=== PATIENT | female | born 1955 | race Caucasian/White ===

== ENCOUNTER 2017-06-09 06:48 | Observation (INO) | payer BC ==
[2017-06-09] MEDS ORDERED: Sodium Chloride 0.9% 2.5 ML Syringe FLUSH PRN (06:54)
[2017-06-09] MEDS ORDERED: Sodium Chloride 0.9% 10 ML Syringe FLUSH PRN (06:54)
[2017-06-09 07:18] LABS: CHLORIDE,CL 107 mmol/L (98-110); SODIUM,NA 143 mmol/L (136-146)
--- NOTE | 2017-06-09 07:20 | EDM.PDOC ---
ED HPI GENERAL MEDICAL PROBLEM - General Chief Complaint: Neuro Symptoms/Deficits Stated Complaint: AMBULANCE Time Seen by Provider: 06/09/17 07:20 Source of Information: Reports: Patient - History of Present Illness INITIAL COMMENTS - FREE TEXT/NARRATIVE: HISTORY AND PHYSICAL: History of present illness: [Patient with history of right frontal stroke awoke at 4 AM with symptoms of left lower extremity weakness unable to move her entire left lower extremity she presents with his history however on arrival she appears to have full strength of the left lower extremity, she does complain of some facial tingling and perceived weakness on the left however I do not appreciate any facial weakness possibly slightly uneven smile no drooling no slurred speech. No other symptoms such as fever nausea vomiting diarrhea constipation chest pain shortness breath headache dizziness or palpitation no bowel or urine symptoms ] Patient declines/refuses tPA however she is not a candidate as she has uncertain of exact onset and has had rapid resolution of symptoms, patient refuses admission for observation Review of systems: As per history of present illness and below otherwise all systems reviewed and negative. Past medical history: As per history of present illness and as reviewed below otherwise noncontributory. Surgical history: As per history of present illness and as reviewed below otherwise noncontributory. Social history: No reported history of drug or alcohol abuse. Family history: As per history of present illness and as reviewed below otherwise noncontributory. Physical exam: HEENT: Atraumatic, normocephalic, pupils reactive, negative for conjunctival pallor or scleral icterus, mucous membranes moist, throat clear, neck supple, nontender, trachea midline. Lungs: Clear to auscultation, breath sounds equal bilaterally, chest nontender. Heart: S1S2, regular, negative for clicks, rubs, or JVD. Abdomen: Soft, nondistended, nontender. Negative for masses or hepatosplenomegaly. Negative for costovertebral tenderness. Pelvis: Stable nontender. Genitourinary: Deferred. Rectal: Deferred. Extremities: Atraumatic, negative for cords or calf pain. Neurovascular unremarkable. Neuro: Awake, alert, oriented. Cranial nerves slight cranial nerve VII weakness on the left unchanged from previous per otherwise unremarkable Cerebellum unremarkable. Motor and sensory unremarkable throughout. Exam nonfocal. Diagnostics: [Lab as below Head CT no contrast Chest 1 view EKG ] Therapeutics: [Aspirin 324 mg chewable Synthroid 75 g by mouth daily ] Patient later agrees to admission for observation Impression: [TIA] versus stroke Slight paresthesia left cranial nerve VII distribution Hypothyroid Chronic history of baseline Definitive disposition and diagnosis as appropriate pending reevaluation and review of above. - Related Data Allergies Allergy/AdvReac Type Severity Reaction Status Date / Time morphine Allergy Hallucinati Verified 11/12/15 12:59 ons piperacillin sodium Allergy Rash Verified 11/12/15 12:59 [From Zosyn] tazobactam sodium Allergy Rash Verified 11/12/15 12:59 [From Zosyn] Home Meds: Home Meds Cholecalciferol (Vitamin D3) [Vitamin D3] 2,000 unit PO DAILY 10/23/13 [History] Clopidogrel [Plavix] 75 mg PO DAILY 10/23/13 [History] Cyanocobalamin (Vitamin B-12) [Vitamin B-12] 1,000 mcg PO BID 10/23/13 [History] Docosahexanoic Acid [DHA] 450 mg PO BID 10/23/13 [History] Escitalopram [Lexapro] 20 mg PO DAILY 10/23/13 [History] Gabapentin [Neurontin] 300 mg PO QID 10/23/13 [History] atorvaSTATin [Lipitor] 40 mg PO BEDTIME 10/23/13 [History] Acetaminophen [Tylenol Arthritis Pain] 1 tab PO ASDIRECTED PRN 11/12/15 [History ] Cyanocobalamin/FA/Pyridoxine [Folbic] 1 tab PO DAILY 11/12/15 [History] Glucosamine/D3/Boswellia Ayneli [Osteo Bi-Flex Caplet] 2 tab PO BID 11/12/15 [ History] Krill Oil/Farwell-3/Dha/Epa [Farwell-3 Krill Oil Softgel] 1,200 mg PO DAILY [History] Lutein 1 tab PO DAILY 11/12/15 [History] Magnesium Oxide [Magnesium] 1 cap PO BID 11/12/15 [History] Multivits-Min/Iron/FA/Lutein [Centrum Silver Women Tablet] 1 tab PO DAILY [History] Ubidecarenone [Co Q-10] 1 cap PO DAILY 11/12/15 [History] Zinc 1 tab PO DAILY 11/12/15 [History] Past Medical History Other HEENT History: uses reading glasses Cardiovascular History: Reports: High Cholesterol Respiratory History: Reports: Sleep Apnea Other Respiratory History: does not use CPAP currently being treated for Lung Cancer Gastrointestinal History: Reports: None CFO History: Reports: None Musculoskeletal History: Reports: Fracture Other Musculoskeletal History: right wrist Neurological History: Reports: CVA Other Neuro History: stroke in 2011, has some tingling of left hand and slurred speech if tired Psychiatric History: Reports: Depression Endocrine/Metabolic History: Reports: Obesity/BMI 30+ Hematologic History: Reports: None Immunologic History: Reports: None Oncologic (Cancer) History: Reports: Colon, Lung, Renal Dermatologic History: Reports: None - Past Surgical History Head Surgeries/Procedures: Reports: None HEENT Surgical History: Reports: None Cardiovascular Surgical History: Reports: None Respiratory Surgical History: Reports: None GI Surgical History: Reports: Colon Other GI Surgeries/Procedures: Colon Resection for Cancer Female Surgical History: Reports: Hysterectomy Other Female Surgeries/Procedures: Cystocele repair Endocrine Surgical History: Reports: None Neurological Surgical History: Reports: None Musculoskeletal Surgical History: Reports: None Other Oncologic Surgeries/Procedures: Colon resection, partial Nephrectomy Dermatological Surgical History: Reports: None Social & Family History - Tobacco Use Smoking Status *Q: Current Every Day Smoker Years of Tobacco use: 30 Packs/Tins Daily: 1 - Alcohol Use Days Per Week of Alcohol Use: 1 Number of Drinks Per Day: 2 Total Drinks Per Week: 2 - Recreational Drug Use Recreational Drug Use: No Drug Use in Last 12 Months: No ED ROS GENERAL - Review of Systems Review Of Systems: ROS reveals no pertinent complaints other than HPI. ED EXAM, GENERAL - Physical Exam Exam: See Below Course - Vital Signs Last Recorded V/S: Last Vital Signs Temp 97.5 F 06/09/17 06:48 Pulse 65 06/09/17 08:27 Resp 16 06/09/17 08:27 BP 108/63 06/09/17 08:27 Pulse Ox 100 06/09/17 08:27 - Orders/Labs/Meds Orders: Active Orders 24 hr Category Date Time Status Cardiac Monitoring [RC] . DIRECTED Care 06/09/17 06:53 Active EKG Documentation Completion [RC] STAT Care 06/09/17 06:53 Active Oxygen Therapy, ED [RC] ASDIRECTED Care 06/09/17 06:53 Active Pulse Oximetry [RC] ASDIRECTED Care 06/09/17 06:53 Active Chest 1V Frontal [CR] Stat Exams 06/09/17 06:54 Taken Head wo Cont [CT] Stat Exams 06/09/17 06:54 Taken Sodium Chloride 0.9% [Normal Saline] 1,000 ml Med 06/09/17 07:00 Active IV STAT Sodium Chloride 0.9% [Saline Flush] Med 06/09/17 06:54 Active 10 ml FLUSH ASDIRECTED PRN Sodium Chloride 0.9% [Saline Flush] Med 06/09/17 06:54 Active 2.5 ml FLUSH ASDIRECTED PRN Saline Lock Insert [OM.PC] Stat Oth 06/09/17 06:53 Ordered Medication Orders Sodium Chloride (Normal Saline) 1,000 mls @ 125 mls/hr IV STAT ROSEMARIE Last Admin: 06/09/17 07:27 Dose: 125 mls/hr Sodium Chloride (Saline Flush) 10 ml FLUSH ASDIRECTED PRN PRN Reason: Keep Vein Open Last Admin: 06/09/17 08:40 Dose: 10 ml Sodium Chloride (Saline Flush) 2.5 ml FLUSH ASDIRECTED PRN PRN Reason: Keep Vein Open Last Admin: 06/09/17 08:40 Dose: 2.5 ml Labs: Laboratory Tests 06/09/17 06/09/17 06/09/17 Range/Units 06:55 06:55 06:55 WBC 8.06 (4.0-11.0) K/uL RBC 4.66 (4.30-5.90) M/uL Hgb 14.9 (12.0-16.0) g/dL Hct 44.8 (36.0-46.0) % MCV 96.1 (80.0-98.0) fL MCH 32.0 (27.0-32.0) pg MCHC 33.3 (31.0-37.0) g/dL RDW Std Deviation 52.7 (28.0-62.0) fl RDW Coeff of Simran 15 (11.0-15.0) % Plt Count 105 L (150-400) K/uL MPV 11.20 (7.40-12.00) fL Add Manual Diff YES Neutrophils % (Manual) 56 (48.0-80.0) % Band Neutrophils % 1 % Lymphocytes % (Manual) 36 (16.0-40.0) % Monocytes % (Manual) 3 (0.0-15.0) % Eosinophils % (Manual) 3 (0.0-7.0) % Basophils % (Manual) 1 (0.0-1.5) % Nucleated RBC % 0.0 /100WBC Absolute Seg Neuts 4.5 (1.4-5.7) Band Neutrophils # 0.1 Lymphocytes # (Manual) 2.9 H (0.6-2.4) Monocytes # (Manual) 0.2 (0.0-0.8) Eosinophils # (Manual) 0.2 (0.0-0.7) Basophils # (Manual) 0.1 (0.0-0.1) Nucleated RBCs # 0 K/uL INR 0.98 Sodium 143 (136-146) mmol/L Potassium 4.5 (3.5-5.1) mmol/L Chloride 107 (98-110) mmol/L Carbon Dioxide 26 (21-31) mmol/L BUN 19 (6.0-23.0) mg/dL Creatinine 1.5 (0.6-1.5) mg/dL Est Cr Clr Drug Dosing 31.15 mL/min Estimated GFR (MDRD) 35.3 ml/min Glucose 96 (60-110) mg/dL Calcium 9.5 (8.8-10.8) mg/dL Total Bilirubin 0.6 (0.1-1.5) mg/dL AST 22 (5-40) IU/L ALT 17 (8-54) IU/L Alkaline Phosphatase 144 (40-150) Troponin I < 0.10 (0.0-0.29) NG/ML Total Protein 6.9 (6.0-8.0) g/dL Albumin 4.0 (3.4-4.8) g/dL Globulin 2.9 (2.0-3.5) g/dL Albumin/Globulin Ratio 1.4 (1.3-2.8) TSH 3rd Generation 7.68 H (0.47-5.0) uIU/mL Urine Color Urine Appearance Urine pH (5.0-8.0) Ur Specific [place] (1.001-1.035) Urine Protein (NEGATIVE) mg/dL Urine Glucose (UA) (NEGATIVE) mg/dL Urine Ketones (NEGATIVE) mg/dL Urine Occult Blood (NEGATIVE) Urine Nitrite (NEGATIVE) Urine Bilirubin (NEGATIVE) Urine Urobilinogen (<2.0) EU/dL Ur Leukocyte Esterase (NEGATIVE) Urine RBC (0-2/HPF) Urine WBC (0-5/HPF) Ur Epithelial Cells (NONE-FEW) Amorphous Sediment (NEGATIVE) Urine Bacteria (NEGATIVE) Urine Opiates Screen (NEGATIVE) Ur Oxycodone Screen (NEGATIVE) Urine Methadone Screen (NEGATIVE) Ur Barbiturates Screen (NEGATIVE) Ur Phencyclidine Scrn (NEGATIVE) Ur Amphetamine Screen (NEGATIVE) U Methamphetamines Scrn (NEGATIVE) U Benzodiazepines Scrn (NEGATIVE) U Cocaine Metab Screen (NEGATIVE) U Marijuana (THC) Screen (NEGATIVE) Ethyl Alcohol < 10.0 mg/dL 06/09/17 06/09/17 Range/Units 08:13 08:13 WBC (4.0-11.0) K/uL RBC (4.30-5.90) M/uL Hgb (12.0-16.0) g/dL Hct (36.0-46.0) % MCV (80.0-98.0) fL MCH (27.0-32.0) pg MCHC (31.0-37.0) g/dL RDW Std Deviation (28.0-62.0) fl RDW Coeff of Simran (11.0-15.0) % Plt Count (150-400) K/uL MPV (7.40-12.00) fL Add Manual Diff Neutrophils % (Manual) (48.0-80.0) % Band Neutrophils % % Lymphocytes % (Manual) (16.0-40.0) % Monocytes % (Manual) (0.0-15.0) % Eosinophils % (Manual) (0.0-7.0) % Basophils % (Manual) (0.0-1.5) % Nucleated RBC % /100WBC Absolute Seg Neuts (1.4-5.7) Band Neutrophils # Lymphocytes # (Manual) (0.6-2.4) Monocytes # (Manual) (0.0-0.8) Eosinophils # (Manual) (0.0-0.7) Basophils # (Manual) (0.0-0.1) Nucleated RBCs # K/uL INR Sodium (136-146) mmol/L Potassium (3.5-5.1) mmol/L Chloride (98-110) mmol/L Carbon Dioxide (21-31) mmol/L BUN (6.0-23.0) mg/dL Creatinine (0.6-1.5) mg/dL Est Cr Clr Drug Dosing mL/min Estimated GFR (MDRD) ml/min Glucose (60-110) mg/dL Calcium (8.8-10.8) mg/dL Total Bilirubin (0.1-1.5) mg/dL AST (5-40) IU/L ALT (8-54) IU/L Alkaline Phosphatase (40-150) Troponin I (0.0-0.29) NG/ML Total Protein (6.0-8.0) g/dL Albumin (3.4-4.8) g/dL Globulin (2.0-3.5) g/dL Albumin/Globulin Ratio (1.3-2.8) TSH 3rd Generation (0.47-5.0) uIU/mL Urine Color YELLOW Urine Appearance CLEAR Urine pH 6.5 (5.0-8.0) Ur Specific [place] 1.015 (1.001-1.035) Urine Protein TRACE (NEGATIVE) mg/dL Urine Glucose (UA) NEGATIVE (NEGATIVE) mg/dL Urine Ketones NEGATIVE (NEGATIVE) mg/dL Urine Occult Blood NEGATIVE (NEGATIVE) Urine Nitrite NEGATIVE (NEGATIVE) Urine Bilirubin NEGATIVE (NEGATIVE) Urine Urobilinogen 0.2 (<2.0) EU/dL Ur Leukocyte Esterase TRACE (NEGATIVE) Urine RBC 0-1 (0-2/HPF) Urine WBC 0-1 (0-5/HPF) Ur Epithelial Cells RARE (NONE-FEW) Amorphous Sediment RARE (NEGATIVE) Urine Bacteria RARE (NEGATIVE) Urine Opiates Screen NEGATIVE (NEGATIVE) Ur Oxycodone Screen NEGATIVE (NEGATIVE) Urine Methadone Screen NEGATIVE (NEGATIVE) Ur Barbiturates Screen NEGATIVE (NEGATIVE) Ur Phencyclidine Scrn NEGATIVE (NEGATIVE) Ur Amphetamine Screen NEGATIVE (NEGATIVE) U Methamphetamines Scrn NEGATIVE (NEGATIVE) U Benzodiazepines Scrn NEGATIVE (NEGATIVE) U Cocaine Metab Screen NEGATIVE (NEGATIVE) U Marijuana (THC) Screen NEGATIVE (NEGATIVE) Ethyl Alcohol mg/dL Meds: Medications Generic Name Dose Route Start Last Admin Trade Name Freq PRN Reason Stop Dose Admin Sodium Chloride 1,000 mls @ 125 mls/hr 06/09/17 07:00 06/09/17 07:27 Normal Saline IV 125 mls/hr STAT ROSEMARIE Administration Sodium Chloride 10 ml 06/09/17 06:54 06/09/17 08:40 Saline Flush FLUSH 10 ml ASDIRECTED PRN Administration Keep Vein Open Sodium Chloride 2.5 ml 06/09/17 06:54 06/09/17 08:40 Saline Flush FLUSH 2.5 ml ASDIRECTED PRN Administration Keep Vein Open Discontinued Medications Generic Name Dose Route Start Last Admin Trade Name Freq PRN Reason Stop Dose Admin Aspirin 81 mg 06/09/17 08:54 Aspirin PO 06/09/17 08:55 ONETIME ONE Levothyroxine Sodium 75 mcg 06/09/17 08:54 Levothyroxine PO 06/09/17 08:55 ONETIME ONE Departure - Departure Time of Disposition: 08:59 Disposition: Refer to Observation Condition: Fair Clinical Impression: TIA (transient ischemic attack) - Discharge Information Referrals: PCP,None [Primary Care Provider] - Forms: ED Department Discharge
[2017-06-09] MEDS: Sodium Chloride 0.9% 1,000 ML IV SCH ×2 (07:27→17:54)
[2017-06-09] MEDS ORDERED: Aspirin 81 MG Tab.Chew PO ONE (08:54)
[2017-06-09] MEDS ORDERED: Levothyroxine 75 MCG Tab PO ONE (08:54)
--- NOTE | 2017-06-09 09:03 | PCM.HP ---
H&P History of Present Illness - General Date of Service: 06/09/17 Admit Problem/Dx: TIA Source of Information: Patient, Family History Limitations: Reports: No Limitations - History of Present Illness Initial Comments - Free Text/Narative: 62-year-old female presented to emergency department with chief complaint of left lower extremity weakness with past medical history of CVA 2016, multiple TIAs 2008, hypertension, hyperlipidemia and non-small cell lung cancer. Patient initially presented to the emergency department with chief complaint of left lower extremity weakness starting at 4 AM this morning. was present during examination and also states that he noticed some left arm weakness. Patient reports as well some facial tingling on her left side. On arrival to ED at 0700 patient appeared to have full strength and no continued symptoms. Patient does have history of right frontal CVA in 2016 with risidual left leg weakness. She denies any associated chest pain, palpitation, sob, syncope, diaphoresis, headache. She was feeling her normal self up to this event and denies any recent nausea, vomiting, diarrhea, cough, sore throat, abdominal pain, or recent illness. Patient is on plavix as well as atovastatin 40 mg but no ASA. She did take an aspirin 81 mg this morning with start of symptoms. She also has a history of non-small cell lung cancer for which she received treatment in [facility]. Her last chemo was in January of 2016 and has been following with them every 3 months since. Patient currently denies any chest pain, palpitations, shortness of breath, syncopal episodes, or new neurologic episodes. Of note patient did decline/refuse tPA but was not a candidate as she was uncertain of exact onset and had rapid resolution of symtoms as per ED. Emergency department: CBC revealed platelets 105, INR was unremarkable, CMP and initial troponin were unremarkable. TSH was elevated at 7.68. He states he has no history of hypothyroidism. Urinalysis and urine tox was negative. EKG showed no acute findings of ischemia, chest x-ray was unremarkable, CT the head showed no signs of acute CVA or hemorrhage. There was a stable chronic right frontal lobe infarct that was unchanged from prior exam. She was given ASA 81 mg, 75 Levo, and 1 L NS in ED. Patient was admitted for suspected TIA. - Related Data Allergies/Adverse Reactions: Allergies Allergy/AdvReac Type Severity Reaction Status Date / Time morphine Allergy Hallucinati Verified 11/12/15 12:59 ons piperacillin sodium Allergy Rash Verified 11/12/15 12:59 [From Zosyn] tazobactam sodium Allergy Rash Verified 11/12/15 12:59 [From Zosyn] Home Medications: Home Meds Cholecalciferol (Vitamin D3) [Vitamin D3] 2,000 unit PO DAILY 10/23/13 [History] Clopidogrel [Plavix] 75 mg PO DAILY 10/23/13 [History] Cyanocobalamin (Vitamin B-12) [Vitamin B-12] 1,000 mcg PO BID 10/23/13 [History] Docosahexanoic Acid [DHA] 450 mg PO BID 10/23/13 [History] Escitalopram [Lexapro] 20 mg PO DAILY 10/23/13 [History] Gabapentin [Neurontin] 300 mg PO QID 10/23/13 [History] atorvaSTATin [Lipitor] 40 mg PO BEDTIME 10/23/13 [History] Acetaminophen [Tylenol Arthritis Pain] 1 tab PO ASDIRECTED PRN 11/12/15 [History ] Cyanocobalamin/FA/Pyridoxine [Folbic] 1 tab PO DAILY 11/12/15 [History] Glucosamine/D3/Boswellia Yaneli [Osteo Bi-Flex Caplet] 2 tab PO BID 11/12/15 [ History] Krill Oil/Estero-3/Dha/Epa [Estero-3 Krill Oil Softgel] 1,200 mg PO DAILY [History] Lutein 1 tab PO DAILY 11/12/15 [History] Magnesium Oxide [Magnesium] 1 cap PO BID 11/12/15 [History] Multivits-Min/Iron/FA/Lutein [Centrum Silver Women Tablet] 1 tab PO DAILY [History] Ubidecarenone [Co Q-10] 1 cap PO DAILY 11/12/15 [History] Zinc 1 tab PO DAILY 11/12/15 [History] Past Medical History Other HEENT History: uses reading glasses Cardiovascular History: Reports: High Cholesterol Respiratory History: Reports: Sleep Apnea Other Respiratory History: does not use CPAP currently being treated for Lung Cancer Gastrointestinal History: Reports: None [employer]ING [employer] WORKER History: Reports: None Musculoskeletal History: Reports: Fracture Other Musculoskeletal History: right wrist Neurological History: Reports: CVA Other Neuro History: stroke in 2011, has some tingling of left hand and slurred speech if tired Psychiatric History: Reports: Depression Endocrine/Metabolic History: Reports: Obesity/BMI 30+ Hematologic History: Reports: None Immunologic History: Reports: None Oncologic (Cancer) History: Reports: Colon, Lung, Renal Dermatologic History: Reports: None - Past Surgical History Head Surgeries/Procedures: Reports: None HEENT Surgical History: Reports: None Cardiovascular Surgical History: Reports: None Respiratory Surgical History: Reports: None GI Surgical History: Reports: Colon Other GI Surgeries/Procedures: Colon Resection for Cancer Female Surgical History: Reports: Hysterectomy Other Female Surgeries/Procedures: Cystocele repair Endocrine Surgical History: Reports: None Neurological Surgical History: Reports: None Musculoskeletal Surgical History: Reports: None Other Oncologic Surgeries/Procedures: Colon resection, partial Nephrectomy Dermatological Surgical History: Reports: None Social & Family History - Family History Family Medical History: Noncontributory - Tobacco Use Smoking Status *Q: Current Every Day Smoker Years of Tobacco use: 30 Packs/Tins Daily: 1 - Alcohol Use Days Per Week of Alcohol Use: 1 Number of Drinks Per Day: 2 Total Drinks Per Week: 2 - Recreational Drug Use Recreational Drug Use: No Drug Use in Last 12 Months: No H&P Review of Systems - Review of Systems: Review Of Systems: See Below General: Denies: Fever, Chills, Weakness, Fatigue HEENT: Denies: Headaches, Sore Throat Pulmonary: Denies: Shortness of Breath, Hemoptysis Cardiovascular: Denies: Chest Pain, Palpitations, Edema Gastrointestinal: Denies: Abdominal Pain, Black Stool, Bloody Stool, Nausea, Vomiting Genitourinary: Denies: Dysuria, Hematuria Musculoskeletal: Denies: Neck Pain, Leg Pain Skin: Denies: Cyanosis Psychiatric: Denies: Confusion Neurological: Reports: Numbness, Tingling, Weakness. Denies: Confusion, Dizziness, Headache, Trouble Speaking, Difficulty Walking, Change in Speech, Gait Disturbance Hematologic/Lymphatic: Denies: Anemia Immunologic: Denies: Anaphylaxis Exam - Exam Exam: See Below - Vital Signs Vital Signs: Last Vital Signs Temp 97.5 F 06/09/17 06:48 Pulse 65 06/09/17 08:27 Resp 16 06/09/17 08:27 BP 108/63 06/09/17 08:27 Pulse Ox 100 06/09/17 08:27 Weight: 96.4 kg - Exam Quality Assessment: DVT Prophylaxis General: Alert, Oriented, Cooperative HEENT: Conjunctiva Clear, EACs Clear, EOMI, Hearing Intact, Mucosa Moist & Archie , Nares Patent, Normal Nasal Septum, Posterior Pharynx Clear, PERRLA Neck: Supple, Trachea Midline, 2 Lungs: Clear to Auscultation, Normal Respiratory Effort Cardiovascular: Regular Rate, Regular Rhythm GI/Abdominal Exam: Normal Bowel Sounds, Soft, Non-Tender, No Organomegaly, No Distention (Female) Exam: Deferred Rectal (Female) Exam: Deferred Back Exam: Normal Inspection, Full Range of Motion, NT Extremities: Normal Inspection, Non-Tender, No Pedal Edema, Normal Capillary Refill Peripheral Pulses: 2+: Radial (L), Radial (R), Posterior Tibial (L), Posterior Tibial (R), Dorsalis Pedis (L), Dorsalis Pedis (R) Skin: Warm, Dry, Intact Neurological: Cranial Nerves Intact. No: Strength Equal Bilateral (left triceps weakness and left hand flexor weakness as compared to right) Neuro Extensive - Mental Status: Alert, Oriented x3, Normal Mood/Affect, Normal Cognition, Memory Intact Neuro Extensive - Motor, Sensory, Reflexes: CN II-XII Intact Psychiatric: Alert, Normal Affect, Normal Mood - Patient Data Lab Results Last 24 hrs: Laboratory Results - last 24 hr 06/09/17 06/09/17 06/09/17 Range/Units 06:55 06:55 06:55 WBC 8.06 (4.0-11.0) K/uL RBC 4.66 (4.30-5.90) M/uL Hgb 14.9 (12.0-16.0) g/dL Hct 44.8 (36.0-46.0) % MCV 96.1 (80.0-98.0) fL MCH 32.0 (27.0-32.0) pg MCHC 33.3 (31.0-37.0) g/dL RDW Std Deviation 52.7 (28.0-62.0) fl RDW Coeff of Simran 15 (11.0-15.0) % Plt Count 105 L (150-400) K/uL MPV 11.20 (7.40-12.00) fL Add Manual Diff YES Neutrophils % (Manual) 56 (48.0-80.0) % Band Neutrophils % 1 % Lymphocytes % (Manual) 36 (16.0-40.0) % Monocytes % (Manual) 3 (0.0-15.0) % Eosinophils % (Manual) 3 (0.0-7.0) % Basophils % (Manual) 1 (0.0-1.5) % Nucleated RBC % 0.0 /100WBC Absolute Seg Neuts 4.5 (1.4-5.7) Band Neutrophils # 0.1 Lymphocytes # (Manual) 2.9 H (0.6-2.4) Monocytes # (Manual) 0.2 (0.0-0.8) Eosinophils # (Manual) 0.2 (0.0-0.7) Basophils # (Manual) 0.1 (0.0-0.1) Nucleated RBCs # 0 K/uL INR 0.98 Sodium 143 (136-146) mmol/L Potassium 4.5 (3.5-5.1) mmol/L Chloride 107 (98-110) mmol/L Carbon Dioxide 26 (21-31) mmol/L BUN 19 (6.0-23.0) mg/dL Creatinine 1.5 (0.6-1.5) mg/dL Est Cr Clr Drug Dosing 31.15 mL/min Estimated GFR (MDRD) 35.3 ml/min Glucose 96 (60-110) mg/dL Calcium 9.5 (8.8-10.8) mg/dL Total Bilirubin 0.6 (0.1-1.5) mg/dL AST 22 (5-40) IU/L ALT 17 (8-54) IU/L Alkaline Phosphatase 144 (40-150) Troponin I < 0.10 (0.0-0.29) NG/ML Total Protein 6.9 (6.0-8.0) g/dL Albumin 4.0 (3.4-4.8) g/dL Globulin 2.9 (2.0-3.5) g/dL Albumin/Globulin Ratio 1.4 (1.3-2.8) TSH 3rd Generation 7.68 H (0.47-5.0) uIU/mL Urine Color Urine Appearance Urine pH (5.0-8.0) Ur Specific [place] (1.001-1.035) Urine Protein (NEGATIVE) mg/dL Urine Glucose (UA) (NEGATIVE) mg/dL Urine Ketones (NEGATIVE) mg/dL Urine Occult Blood (NEGATIVE) Urine Nitrite (NEGATIVE) Urine Bilirubin (NEGATIVE) Urine Urobilinogen (<2.0) EU/dL Ur Leukocyte Esterase (NEGATIVE) Urine RBC (0-2/HPF) Urine WBC (0-5/HPF) Ur Epithelial Cells (NONE-FEW) Amorphous Sediment (NEGATIVE) Urine Bacteria (NEGATIVE) Urine Opiates Screen (NEGATIVE) Ur Oxycodone Screen (NEGATIVE) Urine Methadone Screen (NEGATIVE) Ur Barbiturates Screen (NEGATIVE) Ur Phencyclidine Scrn (NEGATIVE) Ur Amphetamine Screen (NEGATIVE) U Methamphetamines Scrn (NEGATIVE) U Benzodiazepines Scrn (NEGATIVE) U Cocaine Metab Screen (NEGATIVE) U Marijuana (THC) Screen (NEGATIVE) Ethyl Alcohol < 10.0 mg/dL 06/09/17 06/09/17 Range/Units 08:13 08:13 WBC (4.0-11.0) K/uL RBC (4.30-5.90) M/uL Hgb (12.0-16.0) g/dL Hct (36.0-46.0) % MCV (80.0-98.0) fL MCH (27.0-32.0) pg MCHC (31.0-37.0) g/dL RDW Std Deviation (28.0-62.0) fl RDW Coeff of Simran (11.0-15.0) % Plt Count (150-400) K/uL MPV (7.40-12.00) fL Add Manual Diff Neutrophils % (Manual) (48.0-80.0) % Band Neutrophils % % Lymphocytes % (Manual) (16.0-40.0) % Monocytes % (Manual) (0.0-15.0) % Eosinophils % (Manual) (0.0-7.0) % Basophils % (Manual) (0.0-1.5) % Nucleated RBC % /100WBC Absolute Seg Neuts (1.4-5.7) Band Neutrophils # Lymphocytes # (Manual) (0.6-2.4) Monocytes # (Manual) (0.0-0.8) Eosinophils # (Manual) (0.0-0.7) Basophils # (Manual) (0.0-0.1) Nucleated RBCs # K/uL INR Sodium (136-146) mmol/L Potassium (3.5-5.1) mmol/L Chloride (98-110) mmol/L Carbon Dioxide (21-31) mmol/L BUN (6.0-23.0) mg/dL Creatinine (0.6-1.5) mg/dL Est Cr Clr Drug Dosing mL/min Estimated GFR (MDRD) ml/min Glucose (60-110) mg/dL Calcium (8.8-10.8) mg/dL Total Bilirubin (0.1-1.5) mg/dL AST (5-40) IU/L ALT (8-54) IU/L Alkaline Phosphatase (40-150) Troponin I (0.0-0.29) NG/ML Total Protein (6.0-8.0) g/dL Albumin (3.4-4.8) g/dL Globulin (2.0-3.5) g/dL Albumin/Globulin Ratio (1.3-2.8) TSH 3rd Generation (0.47-5.0) uIU/mL Urine Color YELLOW Urine Appearance CLEAR Urine pH 6.5 (5.0-8.0) Ur Specific [place] 1.015 (1.001-1.035) Urine Protein TRACE (NEGATIVE) mg/dL Urine Glucose (UA) NEGATIVE (NEGATIVE) mg/dL Urine Ketones NEGATIVE (NEGATIVE) mg/dL Urine Occult Blood NEGATIVE (NEGATIVE) Urine Nitrite NEGATIVE (NEGATIVE) Urine Bilirubin NEGATIVE (NEGATIVE) Urine Urobilinogen 0.2 (<2.0) EU/dL Ur Leukocyte Esterase TRACE (NEGATIVE) Urine RBC 0-1 (0-2/HPF) Urine WBC 0-1 (0-5/HPF) Ur Epithelial Cells RARE (NONE-FEW) Amorphous Sediment RARE (NEGATIVE) Urine Bacteria RARE (NEGATIVE) Urine Opiates Screen NEGATIVE (NEGATIVE) Ur Oxycodone Screen NEGATIVE (NEGATIVE) Urine Methadone Screen NEGATIVE (NEGATIVE) Ur Barbiturates Screen NEGATIVE (NEGATIVE) Ur Phencyclidine Scrn NEGATIVE (NEGATIVE) Ur Amphetamine Screen NEGATIVE (NEGATIVE) U Methamphetamines Scrn NEGATIVE (NEGATIVE) U Benzodiazepines Scrn NEGATIVE (NEGATIVE) U Cocaine Metab Screen NEGATIVE (NEGATIVE) U Marijuana (THC) Screen NEGATIVE (NEGATIVE) Ethyl Alcohol mg/dL Result Diagrams: 06/09/17 06:55 06/09/17 06:55 *Q Meaningful Use (ADM) - VTE *Q VTE Criteria *Q: - Stroke *Q Stroke Criteria *Q: - AMI *Q AMI Criteria *Q: - Problem List (1) History of CVA (cerebrovascular accident) without residual deficits Status: Chronic Priority: High Current Visit: Yes (2) HTN (hypertension) SNOMED Code(s): 27719869 ICD Code: I10 - ESSENTIAL (PRIMARY) HYPERTENSION Status: Chronic Priority : Medium Current Visit: Yes Qualifiers: Hypertension type: unspecified Qualified Code(s): I10 - Essential (primary ) hypertension (3) HLD (hyperlipidemia) SNOMED Code(s): 24405018 ICD Code: E78.5 - HYPERLIPIDEMIA, UNSPECIFIED Status: Chronic Priority: Medium Current Visit: Yes Qualifiers: Hyperlipidemia type: unspecified Qualified Code(s): E78.5 - Hyperlipidemia , unspecified (4) Non-small cell carcinoma of lung SNOMED Code(s): 333549300 ICD Code: C34.90 - MALIGNANT NEOPLASM OF UNSP PART OF UNSP BRONCHUS OR LUNG Status: Chronic Priority: Low Current Visit: Yes (5) Hypothyroidism SNOMED Code(s): 34963349 ICD Code: E03.9 - HYPOTHYROIDISM, UNSPECIFIED Status: Acute Priority: High Current Visit: Yes Qualifiers: Hypothyroidism type: unspecified Qualified Code(s): E03.9 - Hypothyroidism , unspecified (6) TIA (transient ischemic attack) SNOMED Code(s): 131026714 ICD Code: G45.9 - TRANSIENT CEREBRAL ISCHEMIC ATTACK, UNSPECIFIED Status: Acute Priority: High Current Visit: Yes Qualifiers: Transient cerebral ischemia type: unspecified Qualified Code(s): G45.9 - Transient cerebral ischemic attack, unspecified Problem List Initiated/Reviewed/Updated: Yes Orders Last 24hrs: Active Orders 24 hr Category Date Time Status Cardiac Monitoring [RC] . DIRECTED Care 06/09/17 06:53 Active EKG Documentation Completion [RC] STAT Care 06/09/17 06:53 Active Oxygen Therapy, ED [RC] ASDIRECTED Care 06/09/17 06:53 Active Pulse Oximetry [RC] ASDIRECTED Care 06/09/17 06:53 Active Chest 1V Frontal [CR] Stat Exams 06/09/17 06:54 Taken Head wo Cont [CT] Stat Exams 06/09/17 06:54 Taken Sodium Chloride 0.9% [Normal Saline] 1,000 ml Med 06/09/17 07:00 Active IV STAT Sodium Chloride 0.9% [Saline Flush] Med 06/09/17 06:54 Active 10 ml FLUSH ASDIRECTED PRN Sodium Chloride 0.9% [Saline Flush] Med 06/09/17 06:54 Active 2.5 ml FLUSH ASDIRECTED PRN Saline Lock Insert [OM.PC] Stat Oth 06/09/17 06:53 Ordered Medication Orders Sodium Chloride (Normal Saline) 1,000 mls @ 125 mls/hr IV STAT ROSEMARIE Last Admin: 06/09/17 07:27 Dose: 125 mls/hr Sodium Chloride (Saline Flush) 10 ml FLUSH ASDIRECTED PRN PRN Reason: Keep Vein Open Last Admin: 06/09/17 08:40 Dose: 10 ml Sodium Chloride (Saline Flush) 2.5 ml FLUSH ASDIRECTED PRN PRN Reason: Keep Vein Open Last Admin: 06/09/17 08:40 Dose: 2.5 ml Assessment/Plan Comment:: 62-year-old female admitted suspected TIA and suspected new onset primary hypothyroidism with past medical history of CVA 2015, multiple TIAs 2008 , hypertension, upper lipidemia, and non-small cell lung cancer in remission. Suspected TIA: Patient does have some triceps weakness in the left arm as well as extensor weakness in the left hand on initial exam however she does have reported residual deficits from her last CVA in 2015. She did refuse tPA in the emergency department as per ED. See H&P. Will get MRI brain with and without contrast, MRA head and neck with and without contrast, echocardiogram, and place patient on telemetry. We'll also get a fasting lipid panel in a.m. Will continue home atorvastatin as well as Plavix and add 81 mg ASA daily. We'll adjust medication as needed pending results of MRI and consider neurology consult. Suspected New-onset primary hypothyroidism: No previous history of hypothyroidism. TSH elevated at 7.68 in emergency department. She was given 75 g of levothyroxine at that time. We will get a free T3 and T4 and secondary to her cardiac history and age start her on 50 g of levothyroxine. She will need follow-up in 6 weeks for recheck. Hypertension: Currently controlled will restart home medications. Hyperlipidemia: Fasting lipid panel in a.m. Continue home 40 mg atorvastatin at this time. Non-small cell lung cancer in remission: Patient last chemotherapy was in January 2016. She follows with male in [place] every 3 months. VTE proph: SCD, Heparin Dispo: 1-2 days.
[2017-06-09] MEDS ORDERED: Acetaminophen 325 MG Tab PO PRN (10:01)
[2017-06-09] MEDS ORDERED: Ondansetron 4 MG/2 ML SDV IVPUSH PRN (10:01)
[2017-06-09] MEDS ORDERED: Ondansetron 4 MG Tab.DIS PO PRN (10:01)
[2017-06-09] MEDS ORDERED: Morphine 2 MG/ML Syringe IVPUSH PRN (10:01)
--- NOTE | 2017-06-09 10:47 | CR ---
EXAM DATE: 06/09/17 PATIENT'S AGE: 62 Patient: DESHAUN FITZPATRICK Facility: [place], [place] Site . Site : 1955 Study: XRay Chest [id number]/27/2018 7:18:27 AM Ordering Physician: Doctor Can Final Report: INDICATION: Left-side weakness. History of stroke. TECHNIQUE: Chest 1 views COMPARISON: November 14, 2015. FINDINGS: Cardiovascular and mediastinum: Heart size and vasculature are normal in caliber and appearance. Port catheter is unchanged. Lungs and pleural spaces: Lungs are clear. No sign of infiltrate or mass. No sign of pleural effusion. No pneumothorax. Bones and soft tissues: No significant findings. IMPRESSION: No sign of acute or significant disease. Dictated by Dre Castillo MD @ 06/09/2017 7:52:19 AM Dictated by: Dre Castillo MD @ 06/09/2017 07:52:22 (Electronic Signature) Report Signed by Proxy. [facility] PSYCHIATRIC CENTERDaniel
--- NOTE | 2017-06-09 10:48 | CT ---
EXAM DATE: 06/09/17 PATIENT'S AGE: 62 Patient: DESHAUN FITZPATIRCK Facility: [place], [place] Site . Site : 1955 Study: CT Head [id number]/27/2018 7:20:40 AM Ordering Physician: Doctor Can Final Report: INDICATION: Left-side weakness. History of CVA. TECHNIQUE: CT head without contrast. COMPARISON: October 23, 2013. FINDINGS: CSF spaces: Within normal limits for age. Brain parenchyma: The vides-white differentiation is normal. Stable encephalomalacia in the posterior right frontal lobe. No sign of mass, hemorrhage, or midline shift. Skull base and calvarium: The visualized paranasal sinuses and mastoid air cells demonstrate no acute or significant findings. The visualized orbits are grossly unremarkable. No skull fractures. IMPRESSION: No sign of acute CVA or hemorrhage. Stable chronic right frontal lobe infarct. No change from the prior exam. Dictated by Dre Castillo MD @ 06/09/2017 7:55:19 AM Dictated by: Dre Castillo MD @ 06/09/2017 07:55:24 (Electronic Signature) Report Signed by Proxy. MEAGHAN
[2017-06-09] MEDS: Gabapentin 300 MG Cap PO SCH ×3 (12:47→23:36)
[2017-06-09] MEDS: Clopidogrel 75 MG Tab PO SCH (12:48)
[2017-06-09] MEDS: Heparin Sodium 5,000 Units/ML Vial SUBCUT SCH ×2 (12:51→22:00)
--- NOTE | 2017-06-09 12:56 | MR ---
EXAMINATION: MR of the head without contrast. MRA of the head and neck without contrast. TECHNIQUE: Multiplanar and multisequence imaging of the head without intravenous contrast. Diffusion weighted sequences were performed. [id number] imaging obtained through the head and neck with [employer] with MIP reconstructions. HISTORY: TIA. FINDINGS: MRI brain: The cerebral hemispheres and deep nuclei are without hemorrhage, mass, edema or atrophy. S mall T2 FLAIR hyperintensities in the white matter likely small areas of chronic ischemia. Encephalo malacia is noted within the right posterior frontal lobe with adjacent gliosis. No evidence for restr icted diffusion. No extraaxial collections or hemorrhage. The ventricular system is of normal size and configuration without hydrocephalus. The brainstem and cerebellum are without hemorrhage, mass, edema, gliosis or atrophy. The carotid and basilar artery flow voids are intact. The otomastoid airspaces are clear. No internal auditory canal or cerebellopontine angle masses. Th e paranasal sinuses are clear. The craniocervical junction is unremarkable. MRA neck: There is a normal three-vessel origin of the aortic arch. The common carotid arteries appea r normal without significant stenosis. Vertebral arteries are codominant. Mild atheromatous narrowing within the bulbs bilaterally. Mild atheromatous changes noted within the proximal internal carotid a rteries bilaterally with approximately 30% stenosis within the right internal carotid artery and 40% stenosis of the proximal left internal carotid artery by NASCET criteria. These may be artifactually increased due to flow artifact. MRA head: The distal internal carotid arteries appear grossly normal. The middle, anterior, and poste rior cerebral arteries are normal. The posterior communicating arteries not well characterized. The a nterior communicating is unremarkable. The vertebral basilar system appears normal with the left vert ebral artery slightly dominant. No significant area of stenosis identified. No aneurysm. IMPRESSION: 1. There are no evidence of acute ischemia or infarct. 2. Gliosis likely due to chronic microvascular ischemia. 3. Old right frontal infarct. 4. Mild atheromatous changes noted within the proximal internal carotid arteries bilaterally. 5. Grossly unremarkable intracranial arterial circulation.
[2017-06-09] MEDS ORDERED: atorvaSTATin 40 MG Tab PO SCH (21:00)
[2017-06-10] MEDS: Gabapentin 300 MG Cap PO SCH ×2 (06:32→12:28)
[2017-06-10] MEDS ORDERED: Levothyroxine 50 MCG Tab PO SCH (07:30)
[2017-06-10] MEDS: Clopidogrel 75 MG Tab PO SCH (08:02)
[2017-06-10] MEDS ORDERED: Aspirin 81 MG Tab.Chew PO SCH (09:00)
[2017-06-10] MEDS: Heparin Sodium 5,000 Units/ML Vial SUBCUT SCH (10:22)
[2017-06-10 10:38] VITALS: BP 118/59
[2017-06-10] MEDS ORDERED: Benzocaine/Cetylpyridinium/Menthol Lozenge MUCMEM PRN (12:31)
--- NOTE | 2017-06-10 20:04 | PCM.DCSUM1 ---
Discharge Summary - Hospital Course HPI Initial Comments: Discharge Summary Date of admission: 06/09/2017 Date of discharge: 06/10/2017 Admitting diagnosis: #1. Possible TIA #2. Past medical history significant for non-small cell carcinoma of the lung with malignancy, hypothyroidism, hyperlipidemia, hypertension, history of CVA #3. #4. #5. Discharge diagnoses: #1. Possible TIA symptoms resolved #2. Past medical history significant for non-small cell carcinoma of the lung, hypothyroidism, hyperlipidemia, hypertension, past medical history CVA #3. #4. #5. Consultations: None Procedures: None Hospitalization course: She was admitted for SECONDARY to TIA type symptoms that occurred overnight. Patient did not receive TPA. Patient's weakness had resolved by the time that she had been admitted to the floor. Patient denied any chest pain and palpitations shortness of breath syncope diaphoresis or headaches throughout her stay. She was still feeling weakness on the left lower extremity however she was able to ambulate without great discomfort. Patient no longer had neurological dysfunction during her stay, decision was made to discharge the patient with follow-up with neurology, follow-up with PCP Dr. Keenan as well as Dr. Hurt initially due to the length prior to the patient being able to see her PCP. Patient medications were optimized. Patient is on 40 mg of atorvastatin as well Plavix 75 mg daily. Disposition on discharge: Home Condition on discharge: Stable Discharge medications: #1. Aspirin 81 mg #2. Plavix 75 mg 3. Atorvastatin 40 mg Continuation of progressive home medication Follow-up instructions: Follow-up with PCP Dr. Keenan, Dr. Chapa neurology, Dr. Hurt in the interim prior to being able to see Dr. Keenan as that appointment is further out - Discharge Data Discharge Date: 06/10/17 Discharge Disposition: Home, Self-Care 01 Condition: Stable - Patient Instructions Diet: Heart Healthy Diet Activity: As Tolerated Driving: Do Not Drive Showering/Bathing: August Shower Notify Provider of: Fever, Increased Pain, Nausea and/or Vomiting - Discharge Plan Prescriptions/Med Rec: atorvaSTATin [Lipitor] 40 mg PO BEDTIME 30 Days #30 tablet Clopidogrel [Plavix] 75 mg PO DAILY 30 Days #30 tablet Home Medications: Home Meds Cholecalciferol (Vitamin D3) [Vitamin D3] 2,000 unit PO DAILY 10/23/13 [History] Cyanocobalamin (Vitamin B-12) [Vitamin B-12] 1,000 mcg PO BID 10/23/13 [History] Docosahexanoic Acid [DHA] 450 mg PO BID 10/23/13 [History] Escitalopram [Lexapro] 20 mg PO DAILY 10/23/13 [History] Gabapentin [Neurontin] 300 mg PO QID 10/23/13 [History] Acetaminophen [Tylenol Arthritis Pain] 1 tab PO ASDIRECTED PRN 11/12/15 [History ] Cyanocobalamin/FA/Pyridoxine [Folbic] 1 tab PO DAILY 11/12/15 [History] Glucosamine/D3/Boswellia Yaneli [Osteo Bi-Flex Caplet] 2 tab PO BID 11/12/15 [ History] Krill Oil/[place]-3/Dha/Epa [[place]-3 Krill Oil Softgel] 1,200 mg PO DAILY [History] Lutein 1 tab PO DAILY 11/12/15 [History] Magnesium Oxide [Magnesium] 1 cap PO BID 11/12/15 [History] Multivits-Min/Iron/FA/Lutein [Centrum Silver Women Tablet] 1 tab PO DAILY [History] Ubidecarenone [Co Q-10] 1 cap PO DAILY 11/12/15 [History] Zinc 1 tab PO DAILY 11/12/15 [History] Aspirin 81 mg PO DAILY tab.chew 06/10/17 [Rx] Clopidogrel [Plavix] 75 mg PO DAILY 30 Days #30 tablet 06/10/17 [Rx] atorvaSTATin [Lipitor] 40 mg PO BEDTIME 30 Days #30 tablet 06/10/17 [Rx] Patient Handouts: Transient Ischemic Attack, Xhil-ur-Hvsy, Clopidogrel tablets , Atorvastatin tablets Referrals: Jamir Hurt MD [Resident] - 06/17/17 2:30 pm Humberto Keenan MD [Physician] - 07/09/17 10:00 am Prema Chapa MD [Physician] - 08/18/17 10:00 am (Please check-in at 9:45 a.m.) - Patient Data Vitals - Most Recent: Last Vital Signs Temp 36.3 C 06/10/17 12:00 Pulse 57 L 06/10/17 12:00 Resp 19 06/10/17 12:00 BP 118/59 L 06/10/17 12:00 Pulse Ox 98 06/10/17 12:36 Weight - Most Recent: 96.4 kg I&O - Last 24 hours: Intake & Output 06/10/17 06/10/17 06/10/17 06:59 14:59 22:59 Intake Total 500 1110 Output Total 1500 400 Balance -1000 710 Lab Results - Last 24 hrs: Laboratory Results - last 24 hr 06/10/17 06/10/17 Range/Units 04:57 04:57 WBC 4.79 (4.0-11.0) K/uL RBC 4.38 (4.30-5.90) M/uL Hgb 13.7 (12.0-16.0) g/dL Hct 41.7 (36.0-46.0) % MCV 95.2 (80.0-98.0) fL MCH 31.3 (27.0-32.0) pg MCHC 32.9 (31.0-37.0) g/dL RDW Std Deviation 51.7 (28.0-62.0) fl RDW Coeff of Simran 15 (11.0-15.0) % Plt Count 88 L (150-400) K/uL MPV 11.50 (7.40-12.00) fL Neut % (Auto) 52.0 (48.0-80.0) % Lymph % (Auto) 39.9 (16.0-40.0) % [place] % (Auto) 4.8 (0.0-15.0) % Eos % (Auto) 3.1 (0.0-7.0) % Baso % (Auto) 0.2 (0.0-1.5) % Neut # (Auto) 2.5 (1.4-5.7) K/uL Lymph # (Auto) 1.9 (0.6-2.4) K/uL [place] # (Auto) 0.2 (0.0-0.8) K/uL Eos # (Auto) 0.2 (0.0-0.7) K/uL Baso # (Auto) 0.0 (0.0-0.1) K/uL Nucleated RBC % 0.0 /100WBC Nucleated RBCs # 0 K/uL Sodium 142 (136-146) mmol/L Potassium 4.6 (3.5-5.1) mmol/L Chloride 111 H (98-110) mmol/L Carbon Dioxide 24 (21-31) mmol/L BUN 16 (6.0-23.0) mg/dL Creatinine 1.2 (0.6-1.5) mg/dL Est Cr Clr Drug Dosing 38.94 mL/min Estimated GFR (MDRD) 45.7 ml/min Glucose 79 (60-110) mg/dL Calcium 9.3 (8.8-10.8) mg/dL Magnesium 1.6 (1.5-2.3) mEq/L Total Bilirubin 1.0 (0.1-1.5) mg/dL AST 19 (5-40) IU/L ALT 15 (8-54) IU/L Alkaline Phosphatase 118 (40-150) Total Protein 6.2 (6.0-8.0) g/dL Albumin 3.8 (3.4-4.8) g/dL Globulin 2.4 (2.0-3.5) g/dL Albumin/Globulin Ratio 1.6 (1.3-2.8) Triglycerides 134 (10-190) mg/dL Cholesterol 148 (131-240) mg/dL LDL Cholesterol, Calc 77 (60-180) mg/dL VLDL Cholesterol 27 (5-55) mg/dL HDL Cholesterol 44 (40-80) mg/dL Cholesterol/HDL Ratio 3.4 (3.3-6.0) Free T4 0.95 (0.7-1.48) ng/dL Free T3 2.53 (2.18-3.98) pg/mL Med Orders - Current: Current Medications Discontinued Medications Acetaminophen (Tylenol) 650 mg PO Q4H PRN PRN Reason: Pain (Mild 1-3)/fever Aspirin (Aspirin) 81 mg PO ONETIME ONE Stop: 06/09/17 08:55 Last Admin: 06/09/17 09:05 Dose: 81 mg Aspirin (Aspirin) 81 mg PO DAILY [facility] Last Admin: 06/10/17 08:02 Dose: 81 mg Atorvastatin Calcium (Lipitor) 40 mg PO BEDTIME [facility] Last Admin: 06/09/17 21:26 Dose: 40 mg Benzocaine/Menthol (Cepacol Sore Throat) 1 lozenge MUCMEM Q6H PRN PRN Reason: Sore Throat Last Admin: 06/10/17 12:45 Dose: 1 lozenge Clopidogrel Bisulfate (Plavix) 75 mg PO DAILY [facility] Last Admin: 06/10/17 08:02 Dose: 75 mg Gabapentin (Neurontin) 300 mg PO QID [facility] Last Admin: 06/10/17 12:28 Dose: 300 mg Heparin Sodium (Porcine) (Heparin Sodium) 5,000 units SUBCUT Q12H [facility] Last Admin: 06/10/17 10:22 Dose: Not Given Sodium Chloride (Normal Saline) 1,000 mls @ 125 mls/hr IV STAT [facility] Last Admin: 06/09/17 17:54 Dose: 125 mls/hr Levothyroxine Sodium (Levothyroxine) 75 mcg PO ONETIME ONE Stop: 06/09/17 08:55 Last Admin: 06/09/17 09:05 Dose: 75 mcg Levothyroxine Sodium (Synthroid) 50 mcg PO ACBREAKFAST [facility] Last Admin: 06/10/17 06:32 Dose: 50 mcg Morphine Sulfate (Morphine) 2 mg IVPUSH Q2H PRN PRN Reason: Pain (severe 7-10) Stop: 06/10/17 10:05 Ondansetron HCl (Zofran Odt) 4 mg PO Q4H PRN PRN Reason: nausea, able to take PO Ondansetron HCl (Zofran) 4 mg IVPUSH Q4H PRN PRN Reason: Nausea Sodium Chloride (Saline Flush) 10 ml FLUSH ASDIRECTED PRN PRN Reason: Keep Vein Open Last Admin: 06/09/17 08:40 Dose: 10 ml Sodium Chloride (Saline Flush) 2.5 ml FLUSH ASDIRECTED PRN PRN Reason: Keep Vein Open Last Admin: 06/09/17 08:40 Dose: 2.5 ml *Q Meaningful Use (DIS) - VTE *Q VTE Criteria *Q: - Stroke *Q Stroke Criteria *Q: - AMI *Q AMI Criteria *Q:
--- NOTE | 2017-06-11 15:47 | ECHO ---
EXAM DATE: 06/09/17 PATIENT'S AGE: 62 The echocardiogram report can be seen in this patient's EMR (Electronic Medical Record) in the Reports section. The report has also been scanned into PACs. MEAGHAN
== END 2017-06-10 14:30 | disposition home or self-care (01) ==
LOC: MW.ED 06:48 → MW.MS 09:43
PROVIDERS: ADMIT Family Medicine; ATTEND Family Medicine
DX: R53.1 Weakness (principal); E03.9 Hypothyroidism, unspecified; I10 Essential (primary) hypertension; I69.344 Monoplegia of lower limb following cerebral infarction affecting left non-dominant side; E78.00 Pure hypercholesterolemia, unspecified; G47.30 Sleep apnea, unspecified; C34.90 Malignant neoplasm of unspecified part of unspecified bronchus or lung; F32.9 Major depressive disorder, single episode, unspecified; E66.9 Obesity, unspecified; F17.210 Nicotine dependence, cigarettes, uncomplicated; Z79.899 Other long term (current) drug therapy; Z79.82 Long term (current) use of aspirin; Z88.5 Allergy status to narcotic agent; Z88.0 Allergy status to penicillin; Z79.02 Long term (current) use of antithrombotics/antiplatelets; Z68.30 Body mass index [BMI] 30.0-30.9, adult; Z85.038 Personal history of other malignant neoplasm of large intestine; Z85.53 Personal history of malignant neoplasm of renal pelvis; Z90.49 Acquired absence of other specified parts of digestive tract; Z90.710 Acquired absence of both cervix and uterus; Z90.5 Acquired absence of kidney
CPT/HCPCS: 36415; 70450; 70544; 70547; 70551; 71045; 80053; 80061; 80305; 81001; 83735; 84439; 84443; 84481; 84484; 85025; 85610; 93005; 93306; 96360; 96361; 96372; 99285; A9270; G0378; G0480; J1644; J7040; 99283